=== PATIENT | male | born 1975 | race Caucasian/White ===

== ENCOUNTER 2017-08-13 22:11 | Emergency (ER) | payer BC ==
[~2017-08-13] VITALS: Ht 182.9 cm; Wt 95.7 kg
[~2017-08-13 22:11] MED LIST: CARISOPRODOL 3350 MG PO; CIPRO500 MG PO; IBUPROFEN; IBUPROFEN 600600 M1 PO; LORTAB 7.5/5001 TA3 PO; NAPROSYN500 MG PO; NORCO 5-325 TA1 EACH PO; OXYCONTIN CR 1010 MG PO; PERCOCET 10-321 EAC1 PO; SEROQUEL 25 MG25 M1 PO; XANAX 0.5 MG0.5 M1 PO; ZOFRAN4 MG PO
[2017-08-13] MEDS ORDERED: CARISOPRODOL 3350 MG PO (22:43)
[2017-08-13 22:51] VITALS: BP 128/89
== END 2017-08-13 22:52 | disposition home or self-care (01) ==
LOC: ER 22:11
DX: S16.1XXA Strain of muscle, fascia and tendon at neck level, initial encounter (principal); G89.29 Other chronic pain; M54.12 Radiculopathy, cervical region; F41.9 Anxiety disorder, unspecified; Z90.49 Acquired absence of other specified parts of digestive tract; Z87.01 Personal history of pneumonia (recurrent); Z88.5 Allergy status to narcotic agent; Z88.0 Allergy status to penicillin; Z88.8 Allergy status to other drugs, medicaments and biological substances; Y08.89XA Assault by other specified means, initial encounter; Y93.89 Activity, other specified; Y92.89 Other specified places as the place of occurrence of the external cause; Y99.8 Other external cause status

== ENCOUNTER 2017-11-27 12:27 | Emergency (ER) | payer BC ==
[~2017-11-27] VITALS: Ht 182.9 cm; Wt 95.3 kg
[2017-11-27 13:32] LABS: URINE BILIRUBIN NEGATIVE (Negative); URINE BLOOD NEGATIVE (Negative); URINE CLARITY CLEAR; URINE COLOR YELLOW; URINE GLUCOSE-RANDOM* NEGATIVE (Negative); URINE KETONES NEGATIVE (Negative); URINE LEUKOCYTES-REFLEX NEGATIVE (Negative); URINE NITRITE-REFLEX NEGATIVE (Negative); URINE PROTEIN (DIPSTICK) NEGATIVE (Negative); URINE SPECIFIC GRAVITY <= 1.005 (1.005-1.035); URINE UROBILINOGEN 0.2 E.U./dl (0.2-1.0)
[2017-11-27 13:41] LABS: AMP/METHAMP Negative (Negative); BARBITURATES Negative (Negative); BENZODIAZEPINES Negative (Negative); COCAINE Negative (Negative); METHADONE Negative (Negative); OPIATES POSITIVE (Negative); PCP Negative (Negative)
[2017-11-27 13:43] LABS: ABSOLUTE NEUTROPHILS 4.5 thou/uL (1.4-8.2); BASOPHILS 0.9 % (0.0-2.0); EOSINOPHILS 0.7 % (0.0-3.0); HEMATOCRIT 41.9 % (42.0-52.0); HEMOGLOBIN 14.8 gm/dL (14.0-18.0); LYMPHOCYTES 29.5 % (24.0-44.0); MCH 32.8 pg (26.0-34.0); MCHC 35.3 g/dL (28.0-37.0); MCV 92.8 fL (80.0-100.0); MONOCYTES 8.4 % (1.0-8.0); PLATELET COUNT 268 thou/uL (150-400); POLYS 60.5 % (36.0-66.0); RBC 4.51 mil/uL (4.50-6.00); RDW 13.1 % (10.5-14.5); WBC 7.4 thou/uL (4.0-11.0)
[2017-11-27 13:49] LABS: CALCIUM 9.3 mg/dL (8.5-10.1); CREATININE 0.8 mg/dL (0.7-1.3); POTASSIUM 4.3 mmol/L (3.5-5.1)
[2017-11-27 13:55] LABS: ALBUMIN 4.1 g/dL (3.4-5.0); TOTAL BILIRUBIN 0.6 mg/dL (<0.1-1.0); TOTAL PROTEIN 7.7 g/dL (6.4-8.2)
[2017-11-27] MEDS ORDERED: NAPROSYN500 MG PO (14:41)
[2017-11-27] MEDS ORDERED: TRAMADOL 50 MG50 MG PO (14:41)
[2017-11-27 15:33] VITALS: BP 136/78
== END 2017-11-27 15:34 | disposition home or self-care (01) ==
LOC: ER 12:27
PROVIDERS: Emergency Medicine
DX: I86.1 Scrotal varices (principal); N43.3 Hydrocele, unspecified; F41.9 Anxiety disorder, unspecified; Z90.49 Acquired absence of other specified parts of digestive tract; Z88.0 Allergy status to penicillin; Z88.5 Allergy status to narcotic agent; Z88.8 Allergy status to other drugs, medicaments and biological substances

== ENCOUNTER 2019-07-04 17:02 | Emergency (ER) | payer OTHER ==
[~2019-07-04] VITALS: Ht 182.9 cm; Wt 104.3 kg
[~2019-07-04 17:02] MED LIST changes: +TRAMADOL 50 MG50 MG PO
[2019-07-04] MEDS ORDERED: ALPRAZOLAM XR3 MG PO (17:15)
[2019-07-04] MEDS ORDERED: SOMA350 MG PO (17:27)
[2019-07-04 19:36] VITALS: BP 117/78
== END 2019-07-04 20:07 | disposition home or self-care (01) ==
LOC: ER 17:02
DX: M54.2 Cervicalgia (principal); G89.29 Other chronic pain; G62.9 Polyneuropathy, unspecified; F41.9 Anxiety disorder, unspecified; Z90.49 Acquired absence of other specified parts of digestive tract; Z88.0 Allergy status to penicillin; Z88.6 Allergy status to analgesic agent; Z88.8 Allergy status to other drugs, medicaments and biological substances